=== PATIENT | female | born 1980 | race Caucasian/White ===

== ENCOUNTER 2017-05-16 10:04 | Emergency (ER) | payer MEDICARE, OTHER ==
[2017-05-16 10:15] VITALS: TEMP 98.2
--- NOTE | 2017-05-16 10:28 | CPEKG ---
Heart Rate: 90 RR Interval: 667 P-R Interval: 172 QRSD Interval: 88 QT Interval: 388 QTC Interval: 475 P [place]: 73 QRS [place]: 79 T Wave [place]: 55 EKG Severity - NORMAL ECG - EKG Impression: SINUS RHYTHM Electronically Signed By: Liang Mario 18-May-2017 13:56:53
--- NOTE | 2017-05-16 10:52 | EDPHY ---
H & P Stated Complaint: CP x 2 weeks with SOB, stopped "prozac " suddenly. - Personal History LMP (Females 10-55): 1-7 Days Ago Current Tetanus/Diphtheria Vaccine: Yes Current Tetanus Diphtheria and Acellular Pertussis (TDAP): Yes - Medical/Surgical History Hx Asthma: No Hx Chronic Respiratory Disease: No Hx Diabetes: No Hx Cardiac Disease: No Hx Renal Disease: No Hx Cirrhosis: No Hx Alcoholism: No Hx HIV/AIDS: No Hx Splenectomy or Spleen Trauma: No - Social History Smoking Status: Former smoker Time Seen by Provider: 05/16/17 10:27 HPI/ROS: CHIEF COMPLAINT: Left-sided chest pain, dyspnea x2 week HISTORY OF PRESENT ILLNESS: 36-year-old female generally healthy, no anticoagulant use, no illicit drug use, nonsmoker, complaining of left-sided chest pain, dyspnea for the past 2 weeks weeks. She was started on Prozac was on it for 1 week prior to symptoms PRIMARY CARE PROVIDER: EBEN Strauss REVIEW OF SYSTEMS: A ten point review of systems was performed and is negative with the exception of the items mentioned in the HPI PAST MEDICAL & SURGICAL HISTORY: No pertinent medical or surgical history SOCIAL HISTORY: Nonsmoker, no cocaine or illicit drug use. . 2 children. FAMILY HISTORY: No family history of premature coronary artery disease , coagulopathic disorder, vasculopathy PHYSICAL EXAM (Prior to examination, patient consented to physical exam, hands were washed and my usual and customary physical exam procedures followed) 1) GENERAL: Well-developed, well-nourished, alert and oriented. Appears to be in no acute distress. 2) HEAD: Normocephalic, atraumatic 3) HEENT: Pupils equal, round, reactive to light bilaterally. Sclera anicteric. 4) NECK: Full range of motion, no meningeal signs. No bruit. No adenopathy. 5) LUNGS: Clear auscultation bilaterally, no wheezes, no rhonchi, no retractions. 6) HEART: Regular rate and rhythm, no murmur, no heave, no gallop. 7) ABDOMEN: No guarding, no rebound, no focal tenderness, negative McBurney's, negative Sher's, negative Rovsing's, negative peritoneal sign, 8) MUSCULOSKELETAL: Moving all extremities, no focal areas of tenderness, no obvious trauma. No peripheral edema or discoloration. Negative Homans no palpable cord. 9) BACK: No CVA tenderness, no midline vertebral tenderness, no fluctuance, no step-off, no obvious trauma, no visual or palpable abnormality. 10) SKIN: No rash, no petechiae. 11) Psychiatric: Patient is oriented X 3, there is no agitation. DIFFERENTIAL DIAGNOSIS: In no particular order, including but not limited to myocardial ischemia, pulmonary embolus, chest wall pain, pleural inflammation and pulmonary infectious causes. (Lena Castano) Constitutional: Initial Vital Signs Temperature (C) 36.8 C 05/16/17 10:11 Heart Rate 96 05/16/17 10:11 Respiratory Rate 17 05/16/17 10:11 Blood Pressure 115/73 05/16/17 10:11 O2 Sat (%) 96 05/16/17 10:11 O2 Delivery Mode Room Air Allergies/Adverse Reactions: No Known Allergies Allergy (Verified 10/09/12 00:16) Home Medications: Medication Instructions Recorded Ibuprofen [Motrin (*)] 600 mg PO Q6 PRN #30 tab 11/20/14 Pantoprazole Sodium [Protonix 40mg 40 mg PO DAILY #30 tab 05/16/17 (RX)] Medical Decision Making - Diagnostics Imaging Results: Images reviewed myself (Lena Castano) ED Course/Re-evaluation: 11:49 a.m.: Patient was re-evaluated with serial examinations. Patient is low risk for PR or PE. Did obtain D-dimer and troponin both of which were negative , also discussed her negative chest x-ray, normal sinus rhythm on EKG. I think that her symptoms are less than likely secondary to PR or PE or pulmonary infectious etiology or aortic dissection. We discussed possibility of esophageal reflux, she has been given GI cocktail and will be discharged with Protonix. She does mention she takes 400 mg of ibuprofen daily. Recommend discontinuation of this and discussed NSAID precautions and instructions. TSH has been obtained will be followed up by her primary care provider. I discussed with the patient her chest x-ray showing possible airways disease interpreted by staff radiologist. Her lungs are clear bilaterally, she is maintain normal saturations, no history of reactive airways disease or asthma. We discussed a trial of beta agonist however given her complaints of anxiety, I think that this would more than likely exacerbate her anxiety and she declines this. (Lena Castano) Other Provider: The patient was evaluated and managed by the Physician Roller Staker. I discussed the patient's presentation and course with the physician political science research assistant and agree with the evaluation. My co-signature indicates that I have reviewed this chart and I agree with the findings and plan of care as documented. I am the secondary supervising physician. (Beatriz Short) - Data Points Laboratory Results: Laboratory Results 05/16/17 10:25 05/16/17 10:25 Medications Given: Discontinued Medications Al Hydroxide/Mg Hydroxide (Maalox Susp) 30 ml PO ONCE ONE Stop: 05/16/17 11:57 Last Admin: 05/16/17 12:06 Dose: 30 ml Hyoscyamine Sulfate (Levsin, Hyomax-Sl) 0.25 mg PO ONCE ONE Stop: 05/16/17 11:57 Last Admin: 05/16/17 12:06 Dose: 0.25 mg Lidocaine (Lidocaine 2% Viscous) 15 ml PO ONCE ONE Stop: 05/16/17 11:57 Last Admin: 05/16/17 12:06 Dose: 15 ml Departure - Departure Disposition: Home, Routine, Self-Care Clinical Impression: Chest pain Condition: Good Instructions: Chest Pain (ED) Additional Instructions: Seek medical attention if you develop new or worsening chest pain, if you develop new or worsening shortness of breath, or any other symptoms that concern you. Referrals: Loulou Rodgers PA [Primary Care Provider] - 5-7 days, call for appt. Prescriptions: Pantoprazole Sodium [Protonix 40mg (RX)] 40 mg PO DAILY #30 tab
[2017-05-16 11:02] LABS: % IMMATURE GRANULYOCYTES 0.2 % (0.0-1.1); ABSOLUTE IMMATURE GRANULOCYTES 0.02 10^3/uL (0.00-0.10); ADD DIFF? NO; ADD MORPH? NO; ADD SCAN? NO; ATYPICAL LYMPHOCYTE FLAG 0 (0-99); FRAGMENT RBC FLAG 0 (0-99); HEMATOCRIT 42.9 % (38.0-47.0); HEMOGLOBIN 14.7 g/dL (12.6-16.3); LEFT SHIFT FLG 0 (0-99); LIPEMIA HEMOLYSIS FLAG 90 (0-99); MEAN CELL HEMOGLOBIN 30.6 pg (27.9-34.1); MEAN CELL HEMOGLOBIN CONCENTR. 34.3 g/dL (32.4-36.7); MEAN CELL VOLUME 89.2 fL (81.5-99.8); MEAN PLATELET VOLUME 9.4 fL (8.7-11.7); PLATELET CLUMPS FLAG 20 (0-99); PLATELET COUNT 317 10^3/uL (150-400); RED BLOOD CELL COUNT 4.81 10^6/uL (4.18-5.33); RED CELL DISTRIBUTION WIDTH 12.4 % (11.5-15.2)
[2017-05-16 11:03] LABS: ANION GAP 14 mEq/L (8-16); CALCIUM 9.7 mg/dL (8.5-10.4); CARBON DIOXIDE 25 mEq/l (22-31); CHLORIDE 102 mEq/L (97-110); CREATININE 0.7 mg/dL (0.6-1.0); GLOMERULAR FILTRATION RATE > 60; GLUCOSE 75 mg/dL (70-100); SODIUM 141 mEq/L (134-144)
[2017-05-16 11:15] LABS: TROPONIN I < 0.012 ng/mL (0.000-0.034)
[2017-05-16] MEDS ORDERED: LIDOCAINE 2% VISCOUS 15 ML UDCUP PO ONE (11:56)
[2017-05-16] MEDS ORDERED: MAG HYDROX/AL HYDROX/SIMETH 30 ML UDCUP PO ONE (11:56)
[2017-05-16] MEDS ORDERED: HYOSCYAMINE SULFATE 0.125 MG TAB PO ONE (11:56)
[2017-05-16 12:17] VITALS: BP 112/73; PULSE 78; RESP 16; O2SAT 99
== END 2017-05-16 12:16 | disposition home or self-care (01) ==
DX: R07.9 Chest pain, unspecified (principal); Z87.891 Personal history of nicotine dependence
CPT/HCPCS: 84481-90

== ENCOUNTER → 2018-10-20 | Outpatient (CLI) | payer OTHER | LOC: FIMAGING 14:24 | PROVIDERS: ATTEND Advanced Practice Midwife | DX: O09.521 Supervision of elderly multigravida, first trimester (principal); O09.211 Supervision of pregnancy with history of pre-term labor, first trimester; Z3A.12 12 weeks gestation of pregnancy ==

== ENCOUNTER → 2018-12-14 | Outpatient (CLI) | payer OTHER | LOC: FIMAGING 12:09 ==